=== PATIENT | male | born 1935 | race Caucasian/White ===

== ENCOUNTER → 2018-10-08 18:19 | Outpatient (REF) | payer MEDICARE, OTHER, SELFPAY ==
[2018-10-08 19:20] LABS: B Type Natriuretic Peptide < 100 (<100)
[2018-10-08 19:21] LABS: Add Manual Diff / Slide Review NO; Basophils Absolute Auto 0 /uL (0-100); Basophils Percent Auto 0.6 % (0-2); Eosinophils Absolute Auto 400 /uL (0-450); Eosinophils Percent Auto 6.5 % (2-4); Hematocrit 41.7 % (41-53); Hemoglobin 13.9 g/dL (13.5-17.5); Lymphocytes Absolute Auto 1500 /uL (1100-4500); Lymphocytes Percent Auto 21.6 % (25-40); Mean Corpuscular HGB Conc 33.3 % (30-36); Mean Corpuscular Hemoglobin 31.7 PG (26-34); Mean Corpuscular Volume 95.1 fL (80-100); Monocytes Absolute Auto 500 /uL (0-900); Monocytes Percent Auto 7.4 % (3-14); Neutrophils Absolute Auto 4400 /uL (1500-7000); Neutrophils Percent Auto 63.9 % (50-75); Platelet Count 197 X10^3/uL (150-400); Red Blood Cell Count 4.39 X10^6/uL (4.5-5.9); Red Cell Distribution Width 13.9 % (11.6-14.8); White Blood Cell Count 6.9 X10^3/uL (4.5-11.0)
[2018-10-08 19:28] LABS: Alanine Aminotransferase 31 IU/L (21-72); Albumin 4.4 g/dL (3.5-5.0); Albumin Globulin Ratio 1.8 (1.0-2.8); Alkaline Phosphatase 82 U/L (38-126); Aspartate Aminotransferase 28 IU/L (17-59); BUN Creatinine Ratio 31.4 (6-22); Bilirubin Total 0.6 mg/dL (0.2-1.3); Blood Urea Nitrogen 22 mg/dL (9-20); Calcium 9.3 mg/dL (8.4-10.2); Carbon Dioxide 27 mmol/L (22-32); Chloride 102 mmol/L (98-107); Estimated Glomerular Filt Rate > 60.0 mL/min (>60); Globulin 2.4 g/dL (1.7-4.1); Glucose 83 mg/dL (80-110); HEMOLYSIS < 15 (0-50); Potassium 4.2 mmol/L (3.4-5.1); Sodium 140 mmol/L (137-145); Total Protein 6.8 g/dL (6.3-8.2)
[2018-10-08 19:57] LABS: Thyroid Stimulating Hormone 3.77 uIU/mL (0.47-4.68)
== END ==
LOC: LAB 18:19
PROVIDERS: PCP Family Medicine Geriatric Medicine; Visit Provider Family Medicine Geriatric Medicine
DX: I87.2 Venous insufficiency (chronic) (peripheral) (principal); I50.31 Acute diastolic (congestive) heart failure; I10 Essential (primary) hypertension; E03.9 Hypothyroidism, unspecified
CPT/HCPCS: 36415; 80053; 83880; 84443; 85025; 87102

== ENCOUNTER → 2018-10-17 20:30 | Outpatient (REF) | payer MEDICARE, OTHER, SELFPAY ==
[2018-10-17 20:58] LABS: Blood Urea Nitrogen 24 mg/dL (9-20); Calcium 9.1 mg/dL (8.4-10.2); Carbon Dioxide 31 mmol/L (22-32); Chloride 100 mmol/L (98-107); Estimated Glomerular Filt Rate > 60.0 mL/min (>60); Glucose 79 mg/dL (80-110); HEMOLYSIS < 15 (0-50); Sodium 139 mmol/L (137-145)
== END ==
LOC: LAB 20:30
PROVIDERS: PCP Family Medicine Geriatric Medicine; Visit Provider Family Medicine Geriatric Medicine
DX: R60.9 Edema, unspecified (principal); I10 Essential (primary) hypertension
CPT/HCPCS: 36415; 80048

== ENCOUNTER → 2019-03-11 11:00 | Outpatient (CLI) | payer MEDICARE, OTHER, SELFPAY ==
--- NOTE | 2019-03-11 | DI.MRI.S_ITS ---
PROCEDURE: MR LUMBAR SPINE WO CON INDICATIONS: Low back pain Pain in thoracic spine TECHNIQUE: Noncontrast sagittal T1 spin echo and T2 fast echo, sagittal STIR, axial T1 and T2 fast spin echo through the lumbar spine. In cases with scoliosis, additional coronal T2 fast spin echo may be performed. COMPARISON: [facility], CR, L-SPINE 2-3 VIEWS, 07/08/2009, 12:54. FINDINGS: Image quality: Excellent. Alignment and Curvature: There is trace retrolisthesis of T12 on L1, L1 and L2, L2 and L3, L3 and L4 as well as trace anterolisthesis of L4 on L5 and L5 on S1. Bone Marrow: Marrow is of normal overall signal. Mild reactive endplate changes are present at T12-L1. Schmorl's node with reactive endplate changes are noted along the inferior endplate of T12 and superior endplate of L1. Remaining scattered Schmorl's nodes along the inferior endplate of L2 do not demonstrate visualized acute reactive edema. No acute vertebral body compression fractures. Spinal Cord: Conus medullaris terminates at the L1-L2 level. Visualized cord demonstrates normal signal and size. Paraspinous Soft Tissues: No paravertebral masses. Discs: Moderate to severe desiccation is present throughout the lumbar spine most severe at L1-L2, L2-3 and L5-S1. L1-L2: No disc bulge or spinal stenosis. Mild left foraminal narrowing with facet and ligamentum flavum hypertrophy. L2-L3: Minimal disc bulge without spinal stenosis. Moderate to severe right greater than left foraminal narrowing with facet and ligamentum flavum hypertrophy. L3-L4: Mild disc bulge with minimal canal narrowing. There is moderate to severe left and severe right foraminal narrowing with slight appearance of nerve root effacement number. Facet and ligamentum flavum hypertrophy are present. L4-L5: Mild disc bulge with minimal spinal stenosis. Mild to moderate left foraminal narrowing with facet and ligamentum flavum hypertrophy. L5-S1: Mild disc bulge without spinal stenosis. There is severe bilateral foraminal narrowing with minimal effacement of the nerve root on the right. IMPRESSION: 1. Multilevel disc bulges. 2. Multilevel foraminal narrowing most severe at L5-S1 secondary to anterolisthesis and facet arthropathy. Dictated by: Rosalva Abraham M.D. on 03/11/2019 at 14:19 Approved by: Rosalva Abraham M.D. on 03/11/2019 at 14:36
--- NOTE | 2019-03-11 | DI.MRI.S_ITS ---
PROCEDURE: MR THORACIC SPINE WO CON INDICATIONS: Thoracic spine pain TECHNIQUE: Noncontrast sagittal T1 spine echo and T2 fast spin echo, sagittal STIR, axial T1 and T2 fast spin echo through the thoracic spine. COMPARISON: None. FINDINGS: Image quality: Excellent. Alignment and Curvature: There is normal bony alignment. Bone Marrow: No acute vertebral body compression fractures. Multilevel degenerative endplate sclerosis and spurring. Diffuse facet arthropathy. Spinal Cord: Visualized spinal cord is normal in size and signal. Paraspinous Soft Tissues: No paravertebral masses. Incidental presumed T2 hyperintense left renal cysts Miscellaneous: On axial images, central canal and foramina appear widely patent at all scanned levels. IMPRESSION: No evidence of acute fracture. Diffuse discogenic changes. No high-grade canal or foraminal stenoses. Dictated by: Carlos Brown M.D. on 03/11/2019 at 12:44 Approved by: Carlos Brown M.D. on 03/11/2019 at 12:48
== END ==
PROVIDERS: PCP Family Medicine Geriatric Medicine; Visit Provider Family Medicine Geriatric Medicine
DX: M51.26 Other intervertebral disc displacement, lumbar region (principal); M48.07 Spinal stenosis, lumbosacral region; M43.17 Spondylolisthesis, lumbosacral region; M47.817 Spondylosis without myelopathy or radiculopathy, lumbosacral region; M47.814 Spondylosis without myelopathy or radiculopathy, thoracic region
CPT/HCPCS: 72146; 72148

== ENCOUNTER → 2022-07-07 09:46 | Outpatient (CLI) | payer MEDICARE, SELFPAY ==
--- NOTE | 2022-07-07 09:47 | DI.NM.S_ITS ---
PROCEDURE: NM TARIK PERF SPECT R&S PHARM Rest and pharmacological stress myocardial perfusion SPECT with gated imaging and ejection fraction RADIOPHARMACEUTICAL: 11.8 mCi Tc-99m tetrafosmin IV at rest and 25.7 mCi Tc-99m tetrafosmin IV at peak effect of pharmacological stress. A [id number] was performed. INDICATIONS: Chest pain, unspecified TECHNIQUE: Radiopharmaceutical was injected at peak stress test, and also at rest. SPECT images were obtained. SPECT myocardial perfusion images were displayed in short axis, horizontal long axis, and vertical long axis views. Gated images were reviewed using TVtrip software. COMPARISON: None. CARDIAC STRESS: A pharmacologic stress test was performed under the supervision of an attending staff, using an infusion of regadenoson. Hemodynamic data: There is normal blood pressure and heart rate response to pharmacologic stress. Symptoms: The patient denied anginal chest pain. EKG: Non-diagnostic in the setting of pharmacologic stress. FINDINGS: Raw data: There is good myocardial uptake of radiotracer. No significant motion artifacts. Left ventricle function: Gated images demonstrate normal left ventricular wall thickening. There is basal inferior hypokinesis. No transient ischemic dilation; TID is 1.08 (normal less than 1.3). Left ventricle resting end diastolic volume is 157 mL. Left ventricle stress ejection fraction is 67%; normal range is above 45%. Myocardial perfusion: There is a large sized, mild intensity fixed inferior and inferoseptal wall defect that mostly resolves in prone imaging except the basal inferior wall. There is also a small size, mild intensity fixed apical wall defect. IMPRESSION: No reversible perfusion defects. There is a fixed basal inferior wall defect with associated hypokinesis consistent with prior infarct. The mid to distal inferior and inferoseptal wall defect resolves with prone imaging making them most consistent with diaphragmatic attenuation. The fixed apical defect demonstrates normal wall motion and is most consistent with apical thinning. Increased LVEDV with normal ejection fraction. Dictated by: Misa Garrison D.O. on 07/07/2022 at 16:15 Approved by: Misa Garrison D.O. on 07/07/2022 at 16:21
[2022-07-07 10:55] LABS: COVID19 -Nasal RAPID Negative (Negative)
== END ==
PROVIDERS: PCP Family Medicine; Referring Provider Student in an Organized Health Care Education/Training Program; Visit Provider Student in an Organized Health Care Education/Training Program
DX: R07.9 Chest pain, unspecified (principal); Z20.822 Contact with and (suspected) exposure to COVID-19
CPT/HCPCS: 78452; 87635; 93017; A9502; J2785